=== PATIENT | female | born 1970 | race Caucasian/White ===

== ENCOUNTER 2017-07-25 07:59 | Observation (INO) | payer OTHER ==
[2017-07-25] MEDS: ISOSULFAN BLUE 1% 5 ML INJ SC
[~2017-07-25 07:59] MED LIST: CEFAZOLIN 2 GM/50 ML (PMX) 50 ML IVPB; LIDOCAINE 2% (SDV) 5 ML INJ; SOD CHLORIDE 0.9% 1,000 ML IV; SUCCINYLCHOLINE CHLORIDE 100 MG/5 ML SYG IV
[2017-07-25] MEDS ORDERED: ISOSULFAN BLUE 1% 5 ML INJ SC (11:59)
[2017-07-25 12:05] LABS: ADD MAN DIFF? NO
[2017-07-25 12:23] LABS: BASOPHILS % 0.4 % (0.0-2.0); EOSINOPHILS % 0.7 % (0.0-7.0); HEMATOCRIT 36.9 % (37.0-47.0); HEMOGLOBIN 12.8 g/dl (12.0-16.0); LYMPHOCYTES # 1.3 10^3/ul (0.8-2.9); LYMPHOCYTES % 23.1 % (15.0-51.0); MEAN CORPUSCULAR HEMOGLOBIN 30.4 pg (29.0-33.0); MEAN CORPUSCULAR HGB CONC 34.7 g/dl (32.0-37.0); MEAN CORPUSCULAR VOLUME 87.6 fl (82.0-101.0); MEAN PLATELET VOLUME 10.6 fl (7.4-10.4); MONOCYTE # 0.5 10^3/ul (0.3-0.9); MONOCYTES % 8.2 % (0.0-11.0); NEUTROPHIL # 3.8 10^3/ul (1.6-7.5); NEUTROPHILS % 67.4 % (39.0-77.0); PLATELET COUNT 256 10^3/UL (140-415); RED BLOOD COUNT 4.21 10^6/ul (4.20-5.40); RED CELL DISTRIBUTION WIDTH 12.4 % (11.5-14.5)
[2017-07-25 12:23] LABS: WHITE BLOOD COUNT 5.6 10^3/ul (4.8-10.8)
[2017-07-25] MEDS ORDERED: PROPOFOL 20 ML (12:27)
[2017-07-25] MEDS ORDERED: MIDAZOLAM 1 MG/ML 2 ML INJ (12:27)
[2017-07-25 12:37] LABS: INR 1.05; PROTIME 13.8 Sec (11.9-14.9); PT RATIO 1.1
[2017-07-25] MEDS ORDERED: CEFAZOLIN 1 GM INJ (12:41)
[2017-07-25] MEDS ORDERED: PHENYLephrine (100 MCG/ML) 5ML SYG (12:49)
[2017-07-25 13:14] LABS: ALANINE AMINOTRANSFERASE 28 IU/L (13-69); ALBUMIN 4.8 g/dl (3.3-4.9); ALKALINE PHOSPHATASE 52 IU/L (42-121); ANION GAP 21 (8-16); ASPARTATE AMINO TRANSFERASE 20 IU/L (15-46); BILIRUBIN,INDIRECT 0.5 mg/dl (0-1.1); BILIRUBIN,TOTAL 0.5 mg/dl (0.2-1.3); CARBON DIOXIDE 25 mmol/L (21-31); CHLORIDE 105 mmol/L (97-110); GLUCOSE 85 mg/dl (70-220); TOTAL PROTEIN 7.8 g/dl (6.1-8.1)
[2017-07-25 13:15] LABS: BLOOD UREA NITROGEN 10 mg/dl (7-20); CALCIUM 9.2 mg/dl (8.4-10.2); CREATININE 0.64 mg/dl (0.44-1.00); POTASSIUM 3.9 mmol/L (3.5-5.1)
[2017-07-25] MEDS ORDERED: FAMOTIDINE 20 MG INJ (14:02)
[2017-07-25] MEDS ORDERED: ONDANSETRON 4 MG INJ (14:02)
[2017-07-25 14:14] LABS: SODIUM 147 mmol/L (135-144)
[2017-07-25] MEDS: morphine 2 MG INJ IV (17:15)
[2017-07-25] MEDS: D5W-0.45 NACL + KCL 20 MEQ 1,000 ML IV (17:16)
[2017-07-25] MEDS ORDERED: ONDANSETRON 4 MG INJ IV (19:30)
[2017-07-25] MEDS ORDERED: HYDROCODONE/APAP (5/325) TAB PO (19:30)
[2017-07-26] MEDS: D5W-0.45 NACL + KCL 20 MEQ 1,000 ML IV (01:26)
[2017-07-26 05:52] LABS: ADD MAN DIFF? NO
[2017-07-26 05:54] LABS: BASOPHILS % 0.4 % (0.0-2.0); EOSINOPHILS # 0.1 10^3/ul (0.0-0.5); EOSINOPHILS % 0.7 % (0.0-7.0); HEMATOCRIT 31.3 % (37.0-47.0); HEMOGLOBIN 10.8 g/dl (12.0-16.0); LYMPHOCYTES # 1.3 10^3/ul (0.8-2.9); LYMPHOCYTES % 17.2 % (15.0-51.0); MEAN CORPUSCULAR HEMOGLOBIN 30.4 pg (29.0-33.0); MEAN CORPUSCULAR HGB CONC 34.5 g/dl (32.0-37.0); MEAN CORPUSCULAR VOLUME 88.2 fl (82.0-101.0); MEAN PLATELET VOLUME 10.2 fl (7.4-10.4); MONOCYTE # 0.7 10^3/ul (0.3-0.9); MONOCYTES % 9.5 % (0.0-11.0); NEUTROPHIL # 5.2 10^3/ul (1.6-7.5); NEUTROPHILS % 71.8 % (39.0-77.0); PLATELET COUNT 209 10^3/UL (140-415); RED BLOOD COUNT 3.55 10^6/ul (4.20-5.40); RED CELL DISTRIBUTION WIDTH 12.6 % (11.5-14.5)
[2017-07-26 05:54] LABS: WHITE BLOOD COUNT 7.3 10^3/ul (4.8-10.8)
[2017-07-26 06:20] LABS: ANION GAP 15 (8-16); BLOOD UREA NITROGEN 5 mg/dl (7-20); CALCIUM 8.2 mg/dl (8.4-10.2); CARBON DIOXIDE 24 mmol/L (21-31); CHLORIDE 108 mmol/L (97-110); CREATININE 0.67 mg/dl (0.44-1.00); GLUCOSE 109 mg/dl (70-220); POTASSIUM 4.2 mmol/L (3.5-5.1); SODIUM 143 mmol/L (135-144)
== END 2017-07-26 12:20 | disposition home or self-care (01) ==
LOC: SDS 07:59 → MS2 15:41
DX: C50.912 Malignant neoplasm of unspecified site of left female breast (principal); Z17.0 Estrogen receptor positive status [ER+]
CPT/HCPCS: 19301; 80048; 80053; 85025; 85610; 85730; 88307; 88309

== ENCOUNTER 2017-08-15 11:19 | Observation (INO) | payer OTHER ==
[2017-08-15 13:35] LABS: ADD MAN DIFF? NO
[2017-08-15 13:39] LABS: WHITE BLOOD COUNT 6.5 10^3/ul (4.8-10.8)
[2017-08-15 13:39] LABS: BASOPHILS % 0.5 % (0.0-2.0); EOSINOPHILS # 0.1 10^3/ul (0.0-0.5); EOSINOPHILS % 1.1 % (0.0-7.0); HEMATOCRIT 37.4 % (37.0-47.0); HEMOGLOBIN 13.1 g/dl (12.0-16.0); LYMPHOCYTES # 1.5 10^3/ul (0.8-2.9); LYMPHOCYTES % 22.3 % (15.0-51.0); MEAN CORPUSCULAR HEMOGLOBIN 30.5 pg (29.0-33.0); MEAN CORPUSCULAR VOLUME 87.2 fl (82.0-101.0); MEAN PLATELET VOLUME 9.9 fl (7.4-10.4); MONOCYTE # 0.6 10^3/ul (0.3-0.9); MONOCYTES % 8.6 % (0.0-11.0); NEUTROPHIL # 4.4 10^3/ul (1.6-7.5); PLATELET COUNT 296 10^3/UL (140-415); RED BLOOD COUNT 4.29 10^6/ul (4.20-5.40); RED CELL DISTRIBUTION WIDTH 12.1 % (11.5-14.5)
[2017-08-15 13:51] LABS: ALANINE AMINOTRANSFERASE 38 IU/L (13-69); ALBUMIN 5.2 g/dl (3.3-4.9); ALBUMIN/GLOBULIN RATIO 1.92; ALKALINE PHOSPHATASE 62 IU/L (42-121); ANION GAP 20 (8-16); ASPARTATE AMINO TRANSFERASE 22 IU/L (15-46); BILIRUBIN,INDIRECT 0.4 mg/dl (0-1.1); BILIRUBIN,TOTAL 0.4 mg/dl (0.2-1.3); CARBON DIOXIDE 28 mmol/L (21-31); CHLORIDE 102 mmol/L (97-110); GLUCOSE 86 mg/dl (70-220); TOTAL PROTEIN 7.9 g/dl (6.1-8.1)
[2017-08-15 13:55] LABS: BLOOD UREA NITROGEN 7 mg/dl (7-20); CALCIUM 9.6 mg/dl (8.4-10.2); CREATININE 0.57 mg/dl (0.44-1.00)
[2017-08-15 13:57] LABS: SODIUM 146 mmol/L (135-144)
[2017-08-15 13:59] LABS: INR 1.07; PT RATIO 1.1
[2017-08-15 14:00] LABS: PARTIAL THROMBOPLASTIN TIME 30.1 Sec (25.0-35.0)
[2017-08-15] MEDS ORDERED: SOD CHLORIDE 0.9% 1,000 ML IV (14:00)
[2017-08-15] MEDS: CEFAZOLIN 2 GM/50 ML (PMX) 50 ML IVPB (14:00)
[2017-08-15] MEDS ORDERED: PROPOFOL 40 ML (15:13)
[2017-08-15] MEDS ORDERED: SUCCINYLCHOLINE CHLORIDE 100 MG/5 ML SYG IV (15:14)
[2017-08-15] MEDS ORDERED: MIDAZOLAM 1 MG/ML 2 ML INJ (15:16)
[2017-08-15] MEDS ORDERED: FENTAnyl 50 MCG/ML VIAL ×2 (15:20→15:58)
[2017-08-15] MEDS ORDERED: ONDANSETRON 4 MG INJ ×2 (15:42→16:17)
[2017-08-15] MEDS ORDERED: DEXAMETHASONE 4 MG/ML 1 ML INJ (15:43)
[2017-08-15] MEDS ORDERED: CEFAZOLIN 1 GM INJ (15:49)
[2017-08-15] MEDS ORDERED: PROPOFOL 20 ML (16:00)
[2017-08-15] MEDS ORDERED: SUGAMMADEX SODIUM 200 MG/2 ML VIAL IV (16:07)
[2017-08-15] MEDS ORDERED: NALOXONE (0.4 MG/ML) INJ (16:12)
[2017-08-15] MEDS ORDERED: morphine 2 MG INJ IV (17:00)
[2017-08-15] MEDS ORDERED: ONDANSETRON 4 MG INJ IV ×2 (17:00→17:30)
[2017-08-15] MEDS ORDERED: HYDROmorphONE 0.5 MG/0.5 ML SYG IV (17:30)
[2017-08-15] MEDS ORDERED: hydrALAzine 20 MG INJ IV (17:30)
[2017-08-15] MEDS: D5W-0.45 NACL + KCL 20 MEQ 1,000 ML IV (19:31)
[2017-08-15] MEDS: ACETAMINOPHEN 1000MG/100ML IV 100 ML IVPB (21:15)
[2017-08-15] MEDS ORDERED: VITAMIN A & D 5 GM OINT PACKET TOP (22:22)
[2017-08-16] MEDS: D5W-0.45 NACL + KCL 20 MEQ 1,000 ML IV ×2 (03:39→08:31)
[2017-08-16] MEDS ORDERED: HYDROCODONE/APAP (5/325) TAB PO (08:00)
== END 2017-08-16 13:50 | disposition home or self-care (01) ==
LOC: SDS 11:19 → REC 16:32 → MS1 18:12
DX: C50.912 Malignant neoplasm of unspecified site of left female breast (principal)
CPT/HCPCS: 19305; 80053; 85025; 85610; 85730; 88307